=== PATIENT | female | born 1980 | race Caucasian/White ===

== ENCOUNTER 2022-11-03 10:42 | Outpatient (CLI) | payer OTHER, SELFPAY ==
[2022-11-03 10:59] LABS: Hematocrit 42.4 % (37.0-47.0); Hemoglobin 13.8 g/dL (12.0-15.0); Mean Corpuscular HGB Conc 32.5 g/dl (32-36); Mean Corpuscular Hemoglobin 29.7 pg (26-34); Mean Corpuscular Volume 91.4 fl (80-100); Mean Platelet Volume 9.8 fl (7.4-10.4); Platelet Count Result 282 k/mm3 (150-375); Red Blood Count 4.64 M/mm3 (4.2-5.4); Red Cell Distribution Width 12.8 % (11.5-14.5); White Blood Count 4.5 K/mm3 (4.5-10.0)
[2022-11-03 11:14] LABS: Anion Gap 5 mmol/L (8-16); Blood Urea Nitrogen 15 mg/dL (7-17); Calcium 8.4 mg/dL (8.4-10.2); Carbon Dioxide 28 mmol/L (22-30); Chloride 107 mmol/L (98-107); Estimated Glomerular Filt Rate > 60; Glucose 92 mg/dL (65-110); Sodium 140 mmol/L (137-145)
[2022-11-03 11:21] LABS: Prealbumin 24.4 mg/dL (17.6-36.0)
[2022-11-03 12:31] LABS: Iron 113 ug/dL (37-170)
[2022-11-08 03:26] LABS: Vitamin B1 18 nmol/L (8-30)
== END 2022-11-03 10:43 | disposition home or self-care (01) ==
PROVIDERS: Visit Provider Surgery Plastic and Reconstructive Surgery
DX: Z01.818 Encounter for other preprocedural examination (principal)
CPT/HCPCS: 36415; 80048; 82040; 83540; 84134; 84425; 85027

== ENCOUNTER 2022-12-06 07:50 | Outpatient (CLI) | payer OTHER, SELFPAY ==
--- NOTE | 2022-12-06 07:59 | ECG_ITS ---
Measurements Intervals Standard Rate: 71 P: 48 AK: 153 QRS: 12 QRSD: 88 T: 37 QT: 376 QTc: 411 Interpretive Statements SINUS RHYTHM BASELINE ARTIFACT- II, III, AVF NORMAL ECG NO PREVIOUS ECG AVAILABLE FOR COMPARISON Electronically Signed On 12-06-2022 8:08:16 ACQUISITION ANALYST by Rakan Harrison D.O.
== END 2022-12-06 07:51 | disposition home or self-care (01) ==
PROVIDERS: Visit Provider Surgery Plastic and Reconstructive Surgery
DX: Z41.1 Encounter for cosmetic surgery (principal)
CPT/HCPCS: 93005

== ENCOUNTER 2022-12-07 01:22 | Day surgery (SDC) | payer OTHER, SELFPAY ==
[2022-11-28 12:59] VITALS: BMI 29.1
--- NOTE | 2022-11-28 13:03 | PC.NURSE ---
Report to the Outpatient Waiting Room, entrance under the green pavilion located off [facility], at time 6:00 on date 12/07/22. Planned Procedure Time: 7:30. Time changes happen often and if your time is changed the preop area will call you the afternoon before. - You and your visitor will be asked to self-screen and do not enter if you have any COVID symptoms. - Only one visitor is requested with a max of two and NO children visitors are allowed at this time. - The patient visitor may be requested to leave or wait in car when not with patient due to distancing restrictions. - A mask is optional within the hospital. Patients may have clear liquids (water, carbonated beverages, clear teas, apple juice) until 3 hours prior to surgery (4:30) with a maximum of 20 ounces. - No food from midnight until time of surgery Take the following medications with a SIP of water the morning of surgery: NONE Medications to discontinue per physician: VITAMINS Date to take last dose: 12/03/22 Please no make-up, nail [place], hairspray, perfume, deodorant, or body powder the day of surgery. No jewelry (including any body piercings) or valuables the day of surgery, leave them at home. Please take a shower or bath the night before, or the morning of, surgery with an antibacterial soap. Wear comfortable, loose fitting clothing. - Jewelry must be removed prior to entering the operating room. Rings and piercings that are not removed may be cut off. - The hospital will not accept responsibility for valuables. - Please leave all valuables, including medications, at home the day of surgery. If you are going home after surgery, a licensed bus driver school must drive you home. - NO public transportation without another adult if you receive anesthesia. - We recommend that an adult stay with you for 24 hours following discharge. - We also recommend that you do not drive, make important decision, drink alcoholic beverages, or take any drugs that were not prescribed by your health care provider for at least 24 hours after your discharge time. Follow any additional instructions given to you from your surgeon. If you or anyone in your household have experienced Covid symptoms in the past week, please notify your surgeon or the nurse liaison at the phone number below for possible testing. Telephone instructions given to PT - ALYSSA ONEAL and asked if any additional questions and then verbalized understanding. Patient advised to call surgeon office or pre surgery nurse liaison [phone] if any additional questions.
--- NOTE | 2022-12-06 12:27 | P.PNAN_ITS ---
Anes - Initial Pre Proc Eval Procedure: Operation Date: 12/07/22 07:30 Proposed Procedures p Extended Abdominoplasty with Katie De Lis, Liposuction of Abdomen, - Oziel West MD s Bilateral Breast Mastopexy with GalaFlex - Oziel West MD Date/Time: 12/06/22 12:27 Surgeon: Oziel West MD Pre Op Diagnosis: skin laxity,local adiposity,breast ptosis Patient Data Age: 42 Gender: F Height: 1.65 m Weight: 79.38 kg Allergies Allergy/AdvReac Type Severity Reaction Status Date / Time adhesive tape Allergy Unknown Surgical Verified 12/07/22 06:12 Tape= Rash ibuprofen Allergy Other Verified 12/07/22 06:12 ondansetron [From Zofran] Allergy Nausea Verified 12/07/22 06:12 Home Medications Medication Instructions Recorded Confirmed Type multivitamin 1 tablet PO DAILY 11/28/22 11/28/22 History Patient hx anesthesia problems: none Family hx anesthesia problems: none Results Review: All pre-operative results and documents have been reviewed as part of the pre- operative evaluation. FOR[facility]LY [facility] Past Medical History Medical History (Updated 12/06/22 @ 12:27 by Primo Clark DO) Scoliosis Surgical History Surgical History (Updated 12/06/22 @ 12:27 by Primo Clark DO) History of sleeve gastrectomy History of tonsillectomy Family History Family History (Updated 06/20/22 @ 11:20 by Mariah Tristan) Other Rectal cancer Social History Social History (Updated 06/20/22 @ 11:28 by Mariah Tristan) Smoking status: Never smoker Alcohol intake: current Drinks per week: 3 Substance use: never Substance use type: does not use Living arrangements: with family Spiritual care concerns: No Anes - Eval Final PreProcedure Day of Procedure 12/06/22 12:27 Patient weight: overweight Heart: regular rate and rhythm Lungs: clear to auscultation Airway: Mallampati scale class II Neurological: alert and oriented Last oral intake: >/= 8 hours ASA classification: II Emergent: no Anesthetic plan: proceed Anesthesia type and monitoring: general ETT and standard monitoring Results Review: All pre-operative results and documents have been reviewed as part of the pre- operative evaluation. Informed Consent: The patient's anesthetic plan and its attendant risks and benefits were discussed with the patient/family/POA. Questions were solicited and answers provided to the satisfaction of the patient/family/POA.
[2022-12-07] VITALS (8 sets, daily range): BP systolic 104–121; BP diastolic 62–78; PULSE 67–86; RESP 12–20; TEMP 36.7–37.4; O2SAT 97–100
[2022-12-07 06:41] LABS: Urine Cotinine NEGATIVE
--- NOTE | 2022-12-07 06:54 | WPDHPUPDATE1 ---
History and Physical Update Update Date/Time: 12/07/22 06:54 History and Physical has been reviewed, including an updated exam of the patient. There are NO changes in the patient's condition. Risks, benefits, and alternatives have been discussed and questions answered. Patient agrees to proceed with procedure.
[2022-12-07] MEDS: LACTATED RINGERS 1,000 ML 30 ML IV CONT ×2 (06:56→14:22)
--- NOTE | 2022-12-07 07:21 | W.PM.PROC2 ---
Procedure Note - Detailed Date of Procedure 12/07/22 Pre-op Diagnosis skin laxity,local adiposity,breast ptosis Post-op Diagnosis Same Procedure Performed 1. Bilateral mastopexy with Galaflex 2. Ehlih-xk-rub abdominoplasty with suction lipectomy Surgeon Oziel West MD Anesthesia General Findings Inverted T Mastopexy Superior medial pedicle Abdominal tissue removed: 4805 grams Lipoaspirate: 1350 cc Description of Procedure She is here today for bilateral breast mastopexy with Galaflex and Vyyxh-wm-zcy abdominoplasty with suction lipectomy. Previously and again today the risks, benefits, alternatives were discussed in extensive detail. I wanted them to be very realistic about the risks involved as well as expectations. We discussed aftercare and what to monitor for. I was very upfront about the risks of wound breakdown leading to loss of skin, open wounds, and need for additional procedures with permanent abdominal deformity. We discussed DVT/PE risks and management. Made sure answered all of their questions to their satisfaction today and consent was obtained. Marked in the preoperative holding area with their verification. The patient was taken to the operating room placed supine on the operating table. Anesthesia was provided by anesthesiology. A Oropeza catheter was started. A surgical time-out was taken. She was prepped and draped in a standard sterile fashion. Breast Eleven blade was utilized to make a stab incision and infiltrated with low volume tumescent solution. The breast was tailor tacked into place. I tailor tacked the breast into position. Placed her in a sitting position. Verified the nipple-areolar location based on preoperative planning as well as intraoperative observations and measurements in full agreement. Liposuction was completed lateral to the breast with a 5mm basket cannula based on S.A.F.E. technique.She was placed supine. I de-epithelialized the pedicle. I then de-epithelialized the inferior breast tissue to create an autoaugmentation flap based on intercostal global recruiter. I elevated medial and lateral tissue flaps as well for planned closure. The autoaugmentation flap was sutured to the chest wall with 2-0 PDS. Galaflex was soaking in betadine solution, trimmed, and sutured into place with 2-0 Vicryl. I closed along the IMF with 2-0 Stratafix. Along the vertical with 2-0 PDS. I closed around the Galen with 3-0 strata fix. 3-0 Monocryl along the vertical. 3-0 Stratafix along the IMF. I finally closed everything with running subcuticular 4-0 Monocryl and tissue glue. Abdomen I placed the patient in a flexed position to verify the upper and lower markings would reach. I then placed supine. A thorough abdominal examination was completed. Stab incisions were made and tumescent solution infiltrated. Once adequate time was allowed for hemostasis a 5mm basket cannula was utilized to complete suction lipectomy based on S.A.F.E. technique in multiple planes and passes. There were turned to bilateral lateral decubitus position with care taken to protect them for injury during this process. Suction lipectomy continued to result based on pre-operative planning, intra-operative observation, and rolling pinch test which were in full agreement. A 10 blade was used to make the upper incision as well as the vertical resection for the ghros-yr-koi. I continued dissection down to the level of fascia. Elevated just what was necessary for repair of the diastasis. I then again flexed the bed to verify the upper skin flap would reach the lower markings without tension. Once verified I placed her supine once again and a 10 blade used to make the lower incision. I elevated up to level the umbilicus and left the umbilicus intact on a well-vascularized stalk. The intervening tissue was removed. A 2 mm blunt cannula with 0.5% bupivicaine was injected deep to the fascia bilaterally. I plicated the diastasis r
[2022-12-07] MEDS: BUPIVACAINE/EPINEPHRINE 0.5% 30 ML VIAL 60 ML INFILTRATE (07:29)
[2022-12-07] MEDS: LACTATED RINGERS IRRIG 1,000 ML, LIDOCAINE HCL 1% LOCAL INJ 50 ML, EPINEPHrine HCL INJ ... INFILTRATE (07:29)
[2022-12-07] MEDS: ceFAZolin 2 GM/D5W 50 ML 2 GM/50 ML BAG IVPB (07:29)
[2022-12-07] MEDS: NACL 0.9% IRRIG POUR BOTTLE 900 ML, GENTAMICIN SULFATE INJ 160 MG, ceFAZolin 2 GM, POVI... IRRIGATION (07:29)
[2022-12-07] MEDS: TRANEXAMIC ACID 1,000MG/ISO100 1,000 MG/100 ML BAG 200 MG IVPB (07:47)
[2022-12-07] MEDS: ceFAZolin SODIUM 1 GM VIAL IV PUSH (11:30)
--- NOTE | 2022-12-07 14:04 | SUR.OPER ---
abdominal tissue weight:4708GR. Urine:400ml, EBL:100ml
--- NOTE | 2022-12-07 15:50 | ADMGEN ---
This patient, Kelly Ramirez, was admitted to OB 2nd Floor Room 287-00. Patient/family oriented to hospital policies and general routines including ID bracelet, bed and alarms, visiting hours, pain management, procedures, bathroom and other care routines, personal items, smoking policy, room service/diet, and visiting hours. Information on how to activate the Rapid Response Team has been discussed. Patient/Family are encouraged to report perceived risks to care and to ask questions if they do not understand what they are told or what they should do.
[2022-12-07] MEDS: LACTATED RINGERS 1,000 ML 125 ML IV CONT (16:19)
[2022-12-07] MEDS: MORPHINE SULFATE (*CRX) 2 MG/ML INJ IV PUSH (17:02)
[2022-12-07] MEDS: ENOXAPARIN 40 MG/0.4 ML SYRINGE SUB-Q (19:40)
[2022-12-07] MEDS: carisoprodoL (*CRX) 350 MG TABLET PO (19:40)
[2022-12-07] MEDS: DOCUSATE SODIUM 100 MG CAPSULE PO (19:40)
[2022-12-07] MEDS: oxyCODONE/ACETAMINOPHEN (*CRX) 5-325 MG TABLET PO (20:00)
[2022-12-08] MEDS: carisoprodoL (*CRX) 350 MG TABLET PO ×2 (00:25→05:10)
[2022-12-08] MEDS: oxyCODONE/ACETAMINOPHEN (*CRX) 5-325 MG TABLET PO ×3 (00:25→08:35)
[2022-12-08 05:10] VITALS: BP 101/54; PULSE 75; RESP 16; TEMP 36.9
--- NOTE | 2022-12-08 07:17 | WPDPN ---
Progress Note: A&P Assessment and Plan (1) Breast ptosis: Code(s): N64.81 - Ptosis of breast Status: Acute Assessment and Plan: Doing well after mastopexy with galaflex and hwtre-rx-dgtz abdominoplasty with suction lipectomy. Will discharge home. Today we had lengthy discussion about the care. What to monitor for. Activity limitations. What is an emergency and when to all 911 / go to ER. Call with all other questions. Will see her back. She voiced a clear understanding. (2) Skin laxity: Code(s): L57.4 - Cutis laxa senilis Status: Acute (3) Localized adiposity: Code(s): E65 - Localized adiposity Status: Acute (4) History of sleeve gastrectomy: Code(s): Z90.3 - Acquired absence of stomach [part of] Status: Acute Subjective Date/time seen: 12/08/22 07:17 Interval history: Doing well after mastopexy with galaflex and tfiii-gz-gbaw abdominoplasty with suction lipectomy. Pain controlled. Tolerating diet. Some ambulation. No n/v. No d/c. No SOB. No CP. No calf tenderness. Review of Systems Review of Systems: All systems reviewed & are unremarkable except as noted in HPI and below Exam Narrative: A&O NOD Resp unlabored Bilateral breasts healing well. Soft. No SOI. No hematoma. No seroma. Good color / cap refill. Abdomen is healing well. Soft. No SOI. No hematoma. No seroma. Good color / cap refill. No calf tenderness. Negative Homann's. Objective Data Vital Signs Vital Signs: Vital Signs - 24 hr 12/07/22 14:30 12/07/22 14:45 12/07/22 15:00 Temperature 36.8 C Pulse Rate 86 78 77 Respiratory Rate 20 16 15 Blood Pressure 104/68 111/74 115/62 Pulse Oximetry 100 100 100 Oxygen Delivery Simple Face Mask Simple Face Mask Room Air Oxygen Flow Rate 8 8 12/07/22 15:15 12/07/22 15:30 12/07/22 15:50 Temperature Pulse Rate 67 77 Respiratory Rate 12 15 Blood Pressure 118/72 106/67 Pulse Oximetry 100 97 Oxygen Delivery Room Air Room Air Room Air Oxygen Flow Rate 12/07/22 15:50 12/07/22 19:47 12/08/22 05:10 Temperature 37.4 C 36.7 C 36.9 C Pulse Rate 78 77 75 Respiratory Rate 16 16 16 Blood Pressure 121/73 113/62 101/54 L Pulse Oximetry 99 Oxygen Delivery Oxygen Flow Rate Intake/Output Intake/Output: Intake & Output 12/05/22 12/06/22 12/07/22 12/08/22 23:59 23:59 23:59 23:59 Intake Total 1100 500 Output Total 275 1400 Balance 825 -900 Meds/Results Medications: Active Medications Generic Name Dose Route Start Last Admin Trade Name Freq PRN Reason Stop Dose Admin Carisoprodol 350 mg 12/07/22 18:00 12/08/22 05:10 Carisoprodol (*Crx) 350 Mg Tablet PO 350 mg Q6HR WALDO Administration Diazepam 5 mg 12/07/22 14:31 Diazepam (*Crx) 5 Mg Tablet PO TID PRN Anxiety Docusate Sodium 100 mg 12/07/22 21:00 12/07/22 19:40 Docusate Sodium 100 Mg Capsule PO 100 mg Q12HR WALDO Administration Enoxaparin Sodium 40 mg 12/07/22 21:00 12/07/22 19:40 Enoxaparin 40 Mg/0.4 Ml Syringe SUB-Q 40 mg DAILY WALDO Administration Morphine Sulfate 2 mg 12/07/22 14:31 12/07/22 17:02 Morphine Sulfate (*Crx) 2 Mg/Ml Inj IV PUSH 2 mg Q2H PRN Administration Pain Oxycodone/Acetaminophen 1 - 2 tablet 12/07/22 14:31 12/08/22 05:10 Oxycodone/Acetaminophen (*Crx) 5-325 Mg Tablet PO 1 tablet Q6H PRN Administration Pain
--- NOTE | 2022-12-08 07:22 | P.DS_ITS ---
DS: Admitting Diagnosis Discharge Date 12/08/2022 Admitting Diagnosis Breast ptosis Skin laxity Localized adiposity History gastric sleeve DS: Discharge Diagnosis Discharge Diagnosis (1) Breast ptosis: Code(s): N64.81 - Ptosis of breast Status: Acute (2) Skin laxity: Code(s): L57.4 - Cutis laxa senilis Status: Acute (3) Localized adiposity: Code(s): E65 - Localized adiposity Status: Acute (4) History of sleeve gastrectomy: Code(s): Z90.3 - Acquired absence of stomach [part of] Status: Acute DS: Summary Hospital Course Hospital Course: Underwent mastopexy with galaflex and ktmoz-vn-qfjg abdominoplasty with suction lipectomy. Postoperatively has done well. Ambulating, pain controlled, tolerating diet. Will discharge home. Time Spent with Patient Time attestation: Total time spent providing and/or coordinating discharge services: Exam Narrative: A&O NOD Resp unlabored Bilateral breasts healing well. Soft. No SOI. No hematoma. No seroma. Good color / cap refill. Abdomen is healing well. Soft. No SOI. No hematoma. No seroma. Good color / cap refill. No calf tenderness. Negative Homann's. Discharge Plan Discharge Patient Disposition: Home, Self-Care Discharge Instructions: POST OPERATIVE DISCHARGE INSTRUCTIONS OZIEL WEST M.D. [facility] [address] [place] [address] * No driving for 24 hours after anesthesia and while you are taking pain medication. * Take all prescribed medication as directed * Diet as tolerated. * No lifting or activity that raises blood pressure for 48 hours. * Regular walking / ambulation. * May shower 24 hours after surgery. Once you shower do not take pain medication before showering as the combination of medication and heat may cause you to feel dizzy or pass out. * No pools or tubs for 2 weeks. * Slowly stand up straight as tolerated. * No straining or lifting more than 20 pounds. * If no bowel movement within 24 hours may use laxative. * Call with any questions or concerns. * Dressing Care: Continue abdominal binder / foam and surgical bra 23 hours per day. If you have any questions or concerns, please call the office . If it is after hours you will be directed to the marketing sales consultant exchange. Shortness of breath, chest pain, or other medical emergency dial 911 / proceed to the Em ergency Room. Stand Alone Forms: General Discharge Instructions Follow-up/Referrals: Oziel West MD [Physician] - 1 Week Discharge Medications: Continued multivitamin Tablet 1 tablet PO DAILY
--- NOTE | 2022-12-08 07:22 | PM.DS ---
DS: Admitting Diagnosis Discharge Date 12/08/2022 Admitting Diagnosis Breast ptosis Skin laxity Localized adiposity History gastric sleeve DS: Discharge Diagnosis Discharge Diagnosis (1) Breast ptosis: Code(s): N64.81 - Ptosis of breast Status: Acute (2) Skin laxity: Code(s): L57.4 - Cutis laxa senilis Status: Acute (3) Localized adiposity: Code(s): E65 - Localized adiposity Status: Acute (4) History of sleeve gastrectomy: Code(s): Z90.3 - Acquired absence of stomach [part of] Status: Acute DS: Summary Hospital Course Hospital Course: Underwent mastopexy with galaflex and zqrfm-tj-fmek abdominoplasty with suction lipectomy. Postoperatively has done well. Ambulating, pain controlled, tolerating diet. Will discharge home. Time Spent with Patient Time attestation: Total time spent providing and/or coordinating discharge services: Exam Narrative: A&O NOD Resp unlabored Bilateral breasts healing well. Soft. No SOI. No hematoma. No seroma. Good color / cap refill. Abdomen is healing well. Soft. No SOI. No hematoma. No seroma. Good color / cap refill. No calf tenderness. Negative Homann's. Discharge Plan Discharge Patient Disposition: Home, Self-Care Discharge Instructions: POST OPERATIVE DISCHARGE INSTRUCTIONS OZIEL WEST M.D. [facility] [address] [place] [address] [address] driving for 24 hours after anesthesia and while you are taking pain medication. Take all prescribed medication as directed Diet as tolerated. No lifting or activity that raises blood pressure for 48 hours. Regular walking / ambulation. May shower 24 hours after surgery. Once you shower do not take pain medication before showering as the combination of medication and heat may cause you to feel dizzy or pass out. No pools or tubs for 2 weeks. Slowly stand up straight as tolerated. No straining or lifting more than 20 pounds. If no bowel movement within 24 hours may use laxative. Call with any questions or concerns. Dressing Care: Continue abdominal binder / foam and surgical bra 23 hours per day. If you have any questions or concerns, please call the office . If it is after hours you will be directed to the direct support professional caregiver exchange. Shortness of breath, chest pain, or other medical emergency dial 911 / proceed to the Emergency Room. Stand Alone Forms: General Discharge Instructions Follow-up/Referrals: Oziel West MD [Physician] - 1 Week Discharge Medications: Continued multivitamin Tablet 1 tablet PO DAILY
[2022-12-08 07:30] VITALS: BP 107/63; PULSE 80; RESP 18; TEMP 37.5; O2SAT 97
[2022-12-08] MEDS: DOCUSATE SODIUM 100 MG CAPSULE PO (08:35)
--- NOTE | 2023-04-25 06:47 | WPDPN ---
Progress Note: A&P Assessment and Plan (1) Skin laxity: Code(s): L57.4 - Cutis laxa senilis Status: Acute Assessment and Plan: Doing well after progressive tension abdominoplasty will discharge home. Today we had a lengthy discussion about discharge instructions. Care. What to monitor for. What is an emergency / when to dial 911. Call with all other questions or concerns at any time. (2) Localized adiposity: Code(s): E65 - Localized adiposity Status: Acute Subjective Date/time seen: 04/25/23 06:47 Interval history: She is doing very well post-op progressive tension abdominoplasty with suction lipectomy. Ambulating. Pain controlled. Tolerating diet. No SOB. No CP. No calf tenderness. Review of Systems Review of Systems: All systems reviewed & are unremarkable except as noted in HPI and below Exam Narrative: Alert & Oriented NOD Respiratory unlabored Abdomen is healing well. No signs of infection. No hematoma. No seroma. Good color and capillary refill. No calf tenderness. Negative Jocelyn's
== END 2022-12-08 09:55 | disposition home or self-care (01) ==
LOC: ANHSURGERY 07:28 → ANHOB2 15:47
PROVIDERS: Visit Provider Surgery Plastic and Reconstructive Surgery
PROC: (CPT 19316; principal; 2022-12-07 07:30)
PROC: (CPT 19316; 2022-12-07 07:30)
DX: Z41.1 Encounter for cosmetic surgery (principal); E65 Localized adiposity; L57.4 Cutis laxa senilis; N64.81 Ptosis of breast; Z90.3 Acquired absence of stomach [part of]; Z98.84 Bariatric surgery status
CPT/HCPCS: 19316; 15777 ×2; 15830; 15847; 15877; 80307; 99199; A9270; J0171; J0330; J0690; J1100; J1170; J1580; J1650; J2250; J2270; J2370; J2405; J2704; J3010; J7120